=== PATIENT | female | born 1935 | race Two or more races ===

== ENCOUNTER 2020-06-19 13:15 | Outpatient (CLI) | payer OTHER | END 2020-06-19 13:27 | disposition home or self-care (01) | LOC: EDBD 13:15 → NUCLEAR 13:15 | PROVIDERS: ATTEND Internal Medicine Sports Medicine | DX: C73 Malignant neoplasm of thyroid gland (principal); E89.0 Postprocedural hypothyroidism | CPT/HCPCS: 79005; A9517 ==

== ENCOUNTER 2020-06-23 09:48 | Outpatient (CLI) | payer OTHER | END 2020-06-23 09:50 | disposition home or self-care (01) | LOC: EDBD 09:48 → NUCLEAR 09:48 | PROVIDERS: ATTEND Internal Medicine Sports Medicine | DX: C73 Malignant neoplasm of thyroid gland (principal); E89.0 Postprocedural hypothyroidism ==